=== PATIENT | female | born 1960 ===

== ENCOUNTER 2024-05-26 17:34 | Emergency (ER) | payer OTHER, SELFPAY ==
[2024-05-26 18:03] VITALS: BP 141/68
[2024-05-26] MEDS: RABAVERT RABIES VACC W-DILUENT 2.5 UNIT IM (18:31)
--- NOTE | 2024-05-26 18:45 | ED.GENMED ---
History of Present Illness
General
Chief Complaint: Rabies
Source: patient
Exam Limitations: none
Time Seen by Provider: 05/26/24 18:10
Nursing documentation reviewed up to this point in time: agreed with
History of Present Illness
History of Present Illness:
Patient to ED for 2nd rabies vaccine. She reports handling a bat. SHe received rabies immunglobulin and 1st vaccine 3 days ago in [place]. Here for 2nd dose. SHe had no complaints
Past History
Past History
ED Past Medical History: None
Review of Systems
Review of Systems
Allergies reviewed?: Yes
All Other Systems: ROS reviewed and negative except as documented in HPI and ROS
Constitutional: Reports no symptoms
Musculoskeletal: Reports no symptoms
Skin: Reports no symptoms
Neurological: Reports no symptoms
Psychiatric: Reports no symptoms
Phy Exam
General Physical Exam
General Presentation: well appearing and no apparent distress
General age: appears stated age
General Skin: warm and dry
General Habitus: normal
Musculoskeletal Exam
Musculoskeletal Exam: full ROM
Skin Exam
Skin Exam: normal color, warm/dry and no rash
Psychiatric Exam
Psychiatric Exam: normal mood/affect
Course
Orders/Labs/Results
Orders:
Orders
05/26/24 18:30
Rabies Vaccine (Pcec)/Pf [Rabavert Rabies Vacc W-Diluent] 2.5 unit IM .ONCE ONE
Vital Signs
Initial and Last Documented VS:
Initial Vital Signs
Temp Pulse Resp BP Pulse Ox
98.9 F 54 20 141/68 97
05/26/24 18:03 05/26/24 18:03 05/26/24 18:03 05/26/24 18:03 05/26/24 18:03
Last Documented Vital Signs
Temp Pulse Resp BP Pulse Ox
98.9 F 54 20 141/68 97
05/26/24 18:03 05/26/24 18:03 08/19/24 18:03 05/26/24 18:03 05/26/24 18:03
*Critical Care Note
Total Time (30-74mins, 75-104mins- exclusive of procedures): Not Applicable
ED Attending Note
-
Portions of this chart may have been created with voice recognition software.� Occasional wrong word or��sound alike� substitutions may have occurred due to the inherent limitations of voice recognition software.
Discharge Plan
Departure
Patient Disposition: Home (Routine Discharge)
Date of Disposition: 05/26/24
Time of Disposition: 18:17
Patient with high blood pressure during this ER visit?: No
Condition: Good
Covid-19: Not Applicable
Discharge Problem:
Exposure to rabies
Instructions: Rabies Vaccine
Prescriptions:
New
rabies vacc,human diploid (PF) 2.5 unit recon soln
1 ml IM PER PROTOCOL Qty: 2 0RF
Stand Alone Forms: Rabies Vaccine Post Exp Dosing
Activity Restrictions/Additional Instructions:
Follow up as directed for the remaining rabies vaccination.
Interventions
Interventions:
*Nursing Disposition Last Done: 05/26/24 18:58
Discharge Date and Time
Discharge Date/Time: 05/26/24 18:58
Print Language: SERBIAN
== END 2024-05-26 18:58 | disposition home or self-care (01) ==
LOC: EMR 17:34
PROVIDERS: EMERGENCY PHYSICIAN Student in an Organized Health Care Education/Training Program
DX: Z20.3 Contact with and (suspected) exposure to rabies (principal); Z23 Encounter for immunization
CPT/HCPCS: 99281; 90471; 90675

== ENCOUNTER 2024-06-06 10:02 | Outpatient (RCR) | payer OTHER, SELFPAY ==
[2024-05-30 15:38] VITALS: BP 122/63
[2024-05-30] MEDS: RABAVERT RABIES VACC W-DILUENT 2.5 UNIT IM (15:39)
[2024-06-06] MEDS: RABAVERT RABIES VACC W-DILUENT 2.5 UNIT IM (10:37)
[2024-06-06 10:38] VITALS: BP 109/58
== END 2024-06-07 23:59 | disposition home or self-care (01) ==
LOC: OID 10:02
PROVIDERS: ATTENDING PHYSICIAN Nurse Practitioner; FAMILY PHYSICIAN Student in an Organized Health Care Education/Training Program
DX: Z23 Encounter for immunization (principal); Z20.3 Contact with and (suspected) exposure to rabies
CPT/HCPCS: 90471; 90675

== ENCOUNTER 2025-08-10 06:20 | Day surgery (SDC) | payer OTHER, SELFPAY | END 2025-08-10 14:17 | disposition home or self-care (01) | LOC: GI 06:20 | PROVIDERS: ATTENDING PHYSICIAN Internal Medicine Gastroenterology | DX: Z12.11 Encounter for screening for malignant neoplasm of colon (principal); K64.8 Other hemorrhoids; K57.30 Diverticulosis of large intestine without perforation or abscess without bleeding; D12.8 Benign neoplasm of rectum; D12.3 Benign neoplasm of transverse colon; K63.5 Polyp of colon; Z86.0100 Personal history of colon polyps, unspecified | CPT/HCPCS: 45385; 45380; 88305 ==